=== PATIENT | female | born 1985 | race Caucasian/White ===

== ENCOUNTER 2016-12-29 10:09 | Inpatient (IN) | payer OTHER ==
[2016-12-29] MEDS ORDERED: CITRIC ACID-SODIUM CITRATE 15 ML CUP PO ONE (10:22)
[2016-12-29] MEDS ORDERED: ceFAZolin 2 GM in SODIUM CHLORIDE 0.9% 100 ML IVPB ONE (10:22)
[2016-12-29] MEDS ORDERED: LACTATED RINGERS 1,000 ML IV ONE (10:22)
[2016-12-29 10:41] LABS: Basophils # (A) 0.1 k/uL (0-0.2); Basophils % (A) 0 %; CH 30.5; CHCM 34.8; Eosinophils # (A) 0.3 k/uL (0-0.7); Eosinophils % (A) 2 %; HCT 35.7 % (34.0-46.0); HDW 3.02; HGB 12.4 gm/dL (11.4-16.0); Luc # (Auto) 0.33; Luc % (Auto) 2; Lymphocytes # (A) 1.9 k/uL (1.0-4.8); Lymphocytes % (A) 14 %; MCH 30.6 pg (25.0-35.0); MCHC 34.8 g/dL (31.0-37.0); MCV 88.2 fL (80.0-100.0); Mean Platelet Volume 10.5; Monocytes # (A) 0.6 k/uL (0-1.0); Monocytes % (A) 4 %; Neutrophils % (A) 78 %; RBC 4.05 m/uL (3.80-5.40); RDW 12.7 % (11.5-15.5); WBC 14.1 k/uL (3.8-10.6); WBC (Perox) 14.67
[2016-12-29 10:49] VITALS: BMI 30.9
[2016-12-29] MEDS: LACTATED RINGERS 1,000 ML IV SCH ×2 (10:56→19:59)
[2016-12-29] MEDS ORDERED: OXYTOCIN 10 UNIT/ML 1 ML VIAL IM ONE (11:41)
[2016-12-29] MEDS ORDERED: MORPHINE SULFATE (PF) 0.3 MG/0.3 ML SYR ONE (11:41)
[2016-12-29] MEDS ORDERED: KETOROLAC 30 MG/ML 1 ML VIAL ONE (11:41)
[2016-12-29] MEDS ORDERED: NALBUPHINE 10 MG/ML AMPUL ONE (11:41)
--- NOTE | 2016-12-29 11:46 | P.HPOB ---
History of Present Illness H&P Date: 12/29/16 Chief Complaint: Here for elective repeat and tubal ligation This is a 31-year-old white female 3 para [birth year]19[birth year]2001 EDC 01/02/2017 at 39-4/7 weeks' gestation. Patient presents today for repeat low transverse section and tubal ligation for undesired fertility. has been essentially unremarkable, fetus active, she denies uterine contractions or vaginal bleeding. Past medical history is significant for polycystic ovarian syndrome. Past surgical history 2008, 2010, cryotherapy of the cervix. Current medications vitamins daily. ALLERGIES none known. Family history significant for breast cancer, diabetes, hypertension. Social history patient is , her 's name is Yo, she works at [employer] in the [employer] industry, she is a former tobacco smoker, quit in March 2016, denies alcohol or drug use. history is significant for blood type A+, rubella status immune, VDRL testing, urine culture hepatitis B surface antigen and HIV testing and group B strep cultures all negative, 1 hour Glucola 139. On exam this is a pleasant white female, she is approximately 200 pounds, vital signs are stable and she is afebrile. The general physical exam is within normal limits. The chest is clear in all vasquez. The extremities reveal no edema. The abdomen is obviously gravid, fundal height 39 cm, infant is vertex to Chevy's maneuvers. Reactive NST is noted, frequent accelerations. Occasional uterine contractions noted as well. Impression: 39-4/7 weeks intrauterine , 2 previous C-sections, declining . Undesired fertility. Plan: For repeat low transverse section and Filshie clipped tubal ligation. All risks, benefits and alternatives of her plan are reviewed. Patient desires permanent tubal sterilization, wishing no further pregnancies. All questions answered. Past Medical History Past Medical History: No Reported History History of Any Multi-Drug Resistant Organisms: None Reported Past Surgical History: Section Additional Past Surgical History / Comment(s): lasek eye surgery Past Anesthesia/Blood Transfusion Reactions: No Reported Reaction Past Psychological History: Depression Additional Psychological History / Comment(s): depression as teenager Smoking Status: Former smoker Past Alcohol Use History: None Reported Additional Past Alcohol Use History / Comment(s): smoked 16 years quit march 2016 Past Drug Use History: None Reported - Past Family History Mother Family Medical History: No Reported History Medications and Allergies Home Medications Medication Instructions Recorded Confirmed Type No Known Home Medications [No 12/24/16 12/29/16 History Known Home Medications] Allergies Allergy/AdvReac Type Severity Reaction Status Date / Time No Known Allergies Allergy Verified 12/29/16 10:21 Exam - Vital Signs Vital signs: Vital Signs Temp Pulse Resp BP Pulse Ox 12/29/16 10:38 97.0 F L 71 18 159/89 100 Intake and Output 12/28/16 12/29/16 12/29/16 22:59 06:59 14:59 Other: Weight 87.09 kg Patient Weight 12/30/16 06:59 Weight 87.09 kg Results Result Diagrams: 12/29/16 10:20 Abnormal Lab Results - Last 24 Hours (Table) 12/29/16 Range/Units 10:20 WBC 14.1 H (3.8-10.6) k/uL Plt Count 129 L (150-450) k/uL Neutrophils # 11.0 H (1.3-7.7) k/uL
[2016-12-29] MEDS ORDERED: ONDANSETRON 4 MG/2 ML VIAL IVP PRN (12:08)
[2016-12-29] MEDS ORDERED: diphenhydrAMINE 50 MG/ML 1 ML VIAL IVP PRN ×3 (12:08→12:30)
[2016-12-29] MEDS ORDERED: NALOXONE 0.4 MG/ML 1 ML VIAL IV PRN (12:08)
[2016-12-29] MEDS ORDERED: MORPHINE SULFATE 4 MG/ML SYRINGE IVP PRN (12:08)
[2016-12-29] MEDS ORDERED: ZOLPIDEM 5 MG TAB PO PRN (12:30)
[2016-12-29] MEDS ORDERED: LACTATED RINGERS 1,000 ML IV SCH (12:30)
[2016-12-29] MEDS ORDERED: ACETAMINOPHEN TAB 325 MG TAB PO PRN (12:30)
[2016-12-29] MEDS ORDERED: diphenhydrAMINE 25 MG CAP PO PRN (12:30)
[2016-12-29] MEDS ORDERED: OXYTOCIN 30 UNITS/500 ML NS 30 UNIT in SALINE 1 500ML.BAG IV SCH (12:30)
[2016-12-29] MEDS ORDERED: METOCLOPRAMIDE 5 MG/ML 2 ML VIAL IVP PRN (12:30)
[2016-12-29] MEDS ORDERED: diphenhydrAMINE 50 MG CAP PO PRN (12:30)
--- NOTE | 2016-12-29 12:30 | P.OP ---
Date of Procedure: 12/29/16 Preoperative Diagnosis: 39-3/7 weeks, 2 previous C-sections, undesired fertility. Postoperative Diagnosis: Meconium-stained fluid, nuchal cord 2. Procedure(s) Performed: Repeat low transverse section, tubal ligation bilaterally. Anesthesia: spinal Surgeon: Flavia Bell Sharemilker #1: Cortney Mongtomery Estimated Blood Loss (ml): 600 IV fluids (ml): 600 Urine output (ml): 400 Pathology: other (Placenta) Condition: stable Disposition: PACU Description of Procedure: Patient has a history of 2 previous sections, and is declining option for . In addition, she is wishing bilateral tubal ligation. Informed consents are reviewed signed witnessed and dated, antibiotics given, wishes for tubal ligation once again reaffirmed. Patient is brought to the operative suite where a spinal analgesia is administered without difficulty. She's placed in the dorsal supine position with left lateral uterine displacement. The abdomen is prepped and draped in usual sterile fashion. The analgesia is checked and noted to be adequate. The joins us. A repeat low transverse skin incision is made in this is carried down through the subcutaneous tissue to the fascia. Fascia is isolated, scored, extended bilaterally with curved Fritz scissors. Peritoneum is next identified and incised, there is no bowel or bladder involvement. There is a small amount of omentum adherent to the anterior abdominal fascial plane and this is carefully taken down. Bladder flap is placed over the dome of the bladder and a bladder flap is created with Metzenbaum scissors. The bladder blade is placed over the dome of the bladder and at all times bladder is Well from the operative field to avoid bladder and/or ureteral injury. A repeat low transverse uterine incision is made in this is carried down to the amniotic membranes. Artificial amniorrhexis reveals meconium-stained fluid. The uterine incision is extended bluntly. The infant's head is delivered occiput anterior, there was a nuchal cord 2 that was reduced. The oropharynx, nasopharynx, and external nares are all very carefully and thoroughly bulb suctioned. Patient is officially delivered of a liveborn male at 1159 hours. Umbilical cord is doubly clamped and ligated, he is handed to waiting nurses for evaluation where scores of 8 and 9 at one and 5 minutes respectively are given. The placenta is delivered manually, it is inspected, noted to be darkly meconium stained, intact, with trivascular cord. It is sent to pathology for evaluation. The uterus is then externalized and swept clean with a sterile sponge to avoid any retained products of conception. Uterine edges are grasped with Jeffers clamps. The uterus is closed in a single full-thickness fashion with excellent reapproximation and hemostasis. Bilateral ovaries are noted to be within normal limits. Bilateral tubes are inspected, Filshie clips are placed in the isthmic portions bilaterally with care to traverse the entire diameter of the tube into the mesal salpinx. Fimbriated ends are identified for proper placement. This completed, the uterus is placed gently back into the abdominal cavity. Bilateral gutters are inspected and cleaned. Fascia is closed in a single full-thickness fashion using running stitch of 0 Vicryl suture with over ligation in the midline. Subcutaneous tissue is irrigated, noted to be clean and dry. It is reapproximated with 3-0 Vicryl in a running stitch. 4-0 undyed Vicryl in a subcuticular manner is used for final skin closure. Steri-Strips and Mastisol are applied to the wound. Collazo is noted to be draining clear urine. Patient is brought back to recovery room in excellent condition with stable vital signs including blood pressure 117/70, pulse 82, 100% O2 saturation. Abdominal binder will be placed. Patient and her are wishing circumcision further son. Estimated blood loss 600 mL's.
[2016-12-29] MEDS: KETOROLAC 30 MG/ML 1 ML VIAL IVP PRN ×2 (16:47→23:48)
[2016-12-29] MEDS: SENNOSIDES-DOCUSATE SODIUM 1 EACH TAB PO SCH (19:58)
[2016-12-30 08:04] LABS: Basophils % (A) 0 %; CH 30.3; CHCM 33.7; Eosinophils # (A) 0.1 k/uL (0-0.7); Eosinophils % (A) 1 %; HDW 2.95; HGB 11.3 gm/dL (11.4-16.0); Luc # (Auto) 0.29; Luc % (Auto) 3; Lymphocytes # (A) 1.9 k/uL (1.0-4.8); Lymphocytes % (A) 17 %; MCHC 33.2 g/dL (31.0-37.0); MCV 90.5 fL (80.0-100.0); Mean Platelet Volume 10.8; Monocytes # (A) 0.7 k/uL (0-1.0); Monocytes % (A) 7 %; Neutrophils # (A) 7.8 k/uL (1.3-7.7); Neutrophils % (A) 72 %; RBC 3.76 m/uL (3.80-5.40); RDW 12.9 % (11.5-15.5); WBC 10.9 k/uL (3.8-10.6); WBC (Perox) 11.88
[2016-12-30] MEDS: KETOROLAC 30 MG/ML 1 ML VIAL IVP PRN ×2 (08:04→15:07)
[2016-12-30] MEDS: SENNOSIDES-DOCUSATE SODIUM 1 EACH TAB PO SCH ×2 (08:49→19:56)
--- NOTE | 2016-12-30 09:05 | P.PN ---
Subjective Principal diagnosis: Postoperative day #1 Slept well. Pain well managed. Voiding and ambulating, passing flatus. No complaints. Objective - Vital Signs Vital signs: Vital Signs Temp 98 F 12/30/16 08:00 Pulse 68 12/30/16 08:00 Resp 20 12/30/16 08:00 BP 121/74 12/30/16 08:00 Pulse Ox 99 12/30/16 08:00 Intake & Output 12/29/16 12/30/16 12/30/16 18:59 06:59 18:59 Output Total 1900 400 Balance -1900 -400 Weight 87.09 kg Output: Urine 700 400 Estimated Blood Loss 1200 Other: # Voids 1 - Constitutional General appearance: Present: average body habitus, cooperative - EENT Eyes: Present: PERRLA ENT: Present: hearing grossly normal - Respiratory Respiratory: bilateral: CTA - Cardiovascular Rhythm: regular Heart sounds: normal: S1, S2 - Gastrointestinal General gastrointestinal: Present: normal bowel sounds - Integumentary Integumentary Comment(s): Abdominal incision clean and dry, intact, Steri-Strips applied. Fundus firm, mobile, midline, 18 week size, nontender. Integumentary: Present: normal - Neurologic Neurologic: Present: CNII-XII intact - Musculoskeletal Musculoskeletal: Present: gait normal, strength equal bilaterally - Psychiatric Psychiatric: Present: A&O x's 3, appropriate affect, intact judgment & insight - Labs CBC & Chem 7: 12/30/16 07:47 Labs: Abnormal Lab Results - Last 24 Hours (Table) 12/29/16 12/30/16 Range/Units 10:20 07:47 WBC 14.1 H 10.9 H (3.8-10.6) k/uL RBC 3.76 L (3.80-5.40) m/uL Hgb 11.3 L (11.4-16.0) gm/dL Plt Count 129 L 138 L (150-450) k/uL Neutrophils # 11.0 H 7.8 H (1.3-7.7) k/uL Assessment and Plan Plan: Continue postoperative care. Circumcision now. Likely discharge home tomorrow. May shower. Time with Patient: Less than 30
--- NOTE | 2016-12-30 10:28 | P.PN ---
Progress Note - Text Date: 12/30/1970 Time: 07:13 The patient is status post section Vital signs stable VAS:[0-10] Patient has no complaints of pain. The patient incurred some minimal itching yesterday, this itching is now subsiding. Pain meds to be managed by service.
[2016-12-30] MEDS: IBUPROFEN 600 MG TAB PO PRN (19:56)
[2016-12-30] MEDS: Acetaminophen-Codeine 300-30mg TAB PO PRN (23:17)
[2016-12-31 01:01] VITALS: RESP 18
--- NOTE | 2016-12-31 07:01 | P.DS ---
Providers Date of admission: 12/29/16 10:09 Expected date of discharge: 12/31/16 Attending physician: Flavia Bell Primary care physician: Stated None Hospital Course: This is a 31-year-old white female 3 para 2001 who presented at 39-3/7 weeks' gestation for repeat low transverse section and tubal ligation. Her was unremarkable, group B strep cultures negative, rubella status immune, blood type A positive. Please see my dictated history and physical for details. Patient was admitted and underwent a repeat low transverse section and tubal ligation utilizing Filshie clips. She did well intraoperatively with an estimated blood loss of 600 mL's. She gave to a liveborn male with scores of 8 and 9 at one and 5 minutes respectively. Baby weighed 285 g or 6 lbs. 5 oz. Please see my dictated operative note for details. This morning the patient is doing well. She is voiding, ambulating and passing flatus without difficulty. Vital signs are stable and she is afebrile. Fundus is firm and in the midline, symmetric and 18 week size. Extremities are negative for edema. Breasts are not engorged. Incision is intact, clean and dry, well approximated with Steri-Strips applied. infant is doing well , circumcision has been performed. Patient is being discharged home in very good condition. She will follow-up with me in the office in 2 weeks for incision check. I have reminded her no intercourse, tampons or douching. She will use [id number] products as needed for pain, I am recommending ibuprofen, 200 mg pills, 3 every 6 hours when necessary. She will call with any fevers shakes or chills, foul smelling or copious lochia, with the passage of large blood clots, with any pain not alleviated by Motrin, or indeed with any difficulties or concerns. will follow up with international logistics coordinator as recommended. Patient Condition at Discharge: Good Plan - Discharge Summary Discharge Medication List No Known Home Medications [No Known Home Medications] 12/24/16 [History] Follow up Appointment(s)/Referral(s): Flavia Bell MD [STAFF PHYSICIAN] - 2 Weeks Discharge Disposition: HOME SELF-CARE
[2016-12-31] MEDS: Acetaminophen-Codeine 300-30mg TAB PO PRN (07:47)
[2016-12-31 09:00] VITALS: BP 117/91; PULSE 69; TEMP 97.9
[2016-12-31] MEDS: IBUPROFEN 600 MG TAB PO PRN (09:05)
[2016-12-31] MEDS: SENNOSIDES-DOCUSATE SODIUM 1 EACH TAB PO SCH (10:05)
== END 2016-12-31 10:53 | disposition home or self-care (01) | DRG 766 ==
LOC: 4FBP 10:09
PROVIDERS: ADMIT Obstetrics & Gynecology; ATTEND Obstetrics & Gynecology
PROC: 10D00Z1 Extraction of Products of Conception, Low, Open Approach (ICD-10-PCS; principal; 2016-12-29 12:00)
PROC: 0UL70CZ Occlusion of Bilateral Fallopian Tubes with Extraluminal Device, Open Approach (ICD-10-PCS; principal; 2016-12-29 12:00)
DX: O34.211 Maternal care for low transverse scar from previous cesarean delivery (principal); O69.81X0 Labor and delivery complicated by cord around neck, without compression, not applicable or unspecified; Z37.0 Single live birth; Z87.891 Personal history of nicotine dependence; Z30.2 Encounter for sterilization; Z3A.39 39 weeks gestation of pregnancy
CPT/HCPCS: 85025; 86850; 86900; 86901; 88307